=== PATIENT | male | born 1985 | race Caucasian/White ===

== ENCOUNTER 2019-06-12 11:36 | Inpatient (IN) | payer OTHER ==
[2019-06-12 12:38] VITALS: BMI 29.0
--- NOTE | 2019-06-12 16:51 | HP ---
COWS - Scale Resting Pulse: 0= SC 80 or Below Sweatin= Chills/Flushing Restless Observation: 1= Difficult to Sit Still Pupil Size: 1= Pupils >than Normal Bone or Joint Aches: 2= Severe Diffuse Aches Runny Nose/ Eye Tearin= Runny Nose/Eyes GI Upset > 30mins: 2= Nausea/Diarrhea Tremor Observation: 2= Slight Tremor Visible Yawning Observation: 1= 1-2x During Session Anxiety or Irritability: 2=Irritable/Anxious Goose Flesh Skin: 3=Piloerection COWS Score: 17 CIWA Score Nausea/Vomitin Muscle Tremors: 2 Anxiety: 2 Agitation: 2 Paroxysmal Sweats: 2 Orientation: 0-Oriented Tacttile Disturbances: 2-Mild Itch/Numbness/Burn Auditory Disturbances: 0-None Visual Disturbances: 0-None Headache: 2-Mild CIWA-Ar Total Score: 14 - Admission Criteria OASAS Guidelines: Admission for Medically Managed Detox: Requires at least one of the followin. CIWA greater than 12 2. Seizures within the past 24 hours 3. Delirium tremens within the past 24 hours 4. Hallucinations within the past 24 hours 5. Acute intervention needed for co occurring medical disorder 6. Acute intervention needed for co occurring psychiatric disorder 7. Severe withdrawal that cannot be handled at a lower level of care (continued vomiting, continued diarrhea, abnormal vital signs) requiring intravenous medication and/or fluids 8. Patient presents the following: CIWA greater than 12 Admission Criteria Met: Admission criteria met Admission ROS S - [facility] Chief Complaint: I wanna get clean, I don't wanna be dependent on any heroin unless its prescription opiod. Allergies/Adverse Reactions: Allergies Allergy/AdvReac Type Severity Reaction Status Date / Time Fish Containing Products Allergy Hives Verified 06/12/19 12:27 History of Present Illness: 34 year old man with alcohol and opioid dependence presents for detox. His last treatment was 6 months ago at [facility]. He denies seizures or blackouts related to alcohol. Exam Limitations: No Limitations - Ebola screening Have you traveled outside of the country in the last 21 days: No Have you had contact with anyone from an Ebola affected area: No Have you been sick,other than usual withdrawal symptoms: No Do you have a fever: No - Review of Systems Constitutional: No Symptoms Reported, Chills EENT: reports: Blurred Vision, Nose Congestion Respiratory: reports: Cough (usually at night) Cardiac: reports: No Symptoms Reported GI: reports: Nausea, Poor Fluid Intake, Abdominal cramping : reports: No Symptoms Reported Musculoskeletal: reports: Back Pain Integumentary: reports: Sweating Neuro: reports: Numbness, Tremors Endocrine: reports: No Symptoms Reported Hematology: reports: No Symptoms Reported Psychiatric: reports: Anxious, Depressed Other Systems: Reviewed and Negative Patient History - Patient Medical History Hx Anemia: No Hx Asthma: No Hx Chronic Obstructive Pulmonary Disease (COPD): No Hx Cancer: No Hx Cardiac Disorders: No Hx Congestive Heart Failure: No Hx Hypertension: No Hx Hypercholesterolemia: No Hx Pacemaker: No HX Cerebrovascular Accident: No Hx Seizures: No Hx Dementia: No Hx Diabetes: No Hx Gastrointestinal Disorders: No Hx Liver Disease: No Hx Genitourinary Disorders: No Hx Sexually Transmitted Disorders: No Hx Renal Disease (ESRD): No Hx Thyroid Disease: No Hx Human Immunodeficiency Virus (HIV): No Hx Hepatitis C: No Hx Depression: Yes Hx Suicide Attempt: No Hx Bipolar Disorder: Yes Hx Schizophrenia: Yes - Patient Surgical History Past Surgical History: Yes Hx Neurologic Surgery: No Hx Cataract Extraction: No Hx Cardiac Surgery: No Hx Lung Surgery: No Hx Breast Surgery: No Hx Breast Biopsy: No Hx Abdominal Surgery: No Hx Appendectomy: No Hx Cholecystectomy: No Hx Genitourinary Surgery: No Hx Section: No Hx Orthopedic Surgery: Yes (torn meniscus repair) Other Surgical History: hernia repair x 2 Anesthesia Reaction: No - PPD History Previous Implant?: Yes Documented Results: Negative w/o proof Implanted On Prior [facility] Admission?: No PPD to be Administered?: Yes - Smoking Cessation Smoking history: Current every day smoker Have you smoked in the past 12 months: Yes Aproximately how many cigarettes per day: 10 Hx Chewing Tobacco Use: Yes Initiated information on smoking cessation: Yes 'Breaking Loose' booklet given: 06/12/19 - Substances abused Heroin Substance route: Inhalation Frequency: Daily Amount used: 10 BAGS/DAY Age of first use: 24 Date of last use: 06/12/19 Alcohol Substance route: Oral Frequency: Daily Amount used: 1PINT OF VODKA/DAY Age of first use: 24 Date of last use: 06/11/19 Admission Physical Exam BHS - Vital Signs Vital Signs: Vital Signs - 24 hr 06/12/19 12:34 Temperature 97.1 F L Pulse Rate 60 Respiratory 16 Rate Blood Pressure 130/70 - Physical General Appearance: Yes: Within Normal Limits HEENTM: Yes: Hearing grossly Normal, Normal ENT Inspection, Normocephalic, Normal Voice, JULIANNA, Pharynx Normal Respiratory: Yes: Chest Non-Tender, Lungs Clear, Normal Breath Sounds, No Respiratory Distress, No Accessory Muscle Use Neck: Yes: No masses,lesions,Nodules, Supple Breast: Yes: Breast Exam Deferred Cardiology: Yes: Regular Rhythm, Regular Rate, S1, S2 Abdominal: Yes: Normal Bowel Sounds, Non Tender Back: Yes: Normal Inspection Musculoskeletal: Yes: full range of Motion, Gait Steady, Pelvis Stable Extremities: Yes: Normal Range of Motion, Tremors Neurological: Yes: marketing strategy manager II-XII NML intact, Fully Oriented, Alert, Motor Strength 5/5, Normal Mood/Affect, Normal Response, Numbness Integumentary: Yes: Clammy Lymphatic: Yes: Within Normal Limits - Diagnostic (1) Opioid dependence Current Visit: Yes Status: Acute Qualifiers: Substance use status: uncomplicated Qualified Code(s): F11.20 - Opioid dependence, uncomplicated (2) Alcohol dependence, uncomplicated Current Visit: Yes Status: Acute (3) Cocaine abuse Current Visit: Yes Status: Acute (4) Marijuana dependence Current Visit: Yes Status: Acute (5) Nicotine addiction Current Visit: Yes Status: Acute Qualifiers: Nicotine product type: cigarettes Substance use status: uncomplicated Qualified Code(s): F17.210 - Nicotine dependence, cigarettes, uncomplicated Cleared for Admission S - Detox or Rehab [facility] Level of Care: Medically Managed Detox Regimen/Protocol: Methadone/Valium Claeared for Rehab Admission: No Breathalyzer - Breathalyzer Breathalyzer: 0 Urine Drug Screen - Test Device Lot number: [id number] Expiration date: 02/10/21 - Control Is test valid?: Yes - Results Drug screen NEGATIVE: No Urine drug screen results: THC-Marijuana, ALEXY-Cocaine, FEN-Fentanyl, MOP-Opiates Inpatient Rehab Admission - Rehab Decision to Admit Inpatient rehab admission?: No
[2019-06-12] MEDS ORDERED: IBUPROFEN 400 MG TABLET (FP) PO PRN (17:00)
[2019-06-12] MEDS ORDERED: NALOXONE HCL 0.4 MG/ML VIAL IM PRN (17:00)
[2019-06-12] MEDS ORDERED: MAGNESIUM CITRATE 300 ML BOTTLE PO PRN (17:00)
[2019-06-12] MEDS ORDERED: METHADONE HCL 10 MG TABLET (FOR DETOX USE ONLY) PO ONE (17:00)
[2019-06-12] MEDS ORDERED: MAGNESIUM HYDROX 2400MG/30ML ORAL SUSPENSION 30 ML CUP PO PRN (17:00)
[2019-06-12] MEDS ORDERED: NICOTINE POLACRILEX 2 MG GUM BUC PRN (17:00)
[2019-06-12] MEDS ORDERED: MENTHOL/PHENOL 1 EACH UD MM PRN (17:00)
[2019-06-12] MEDS ORDERED: QUEtiapine FUMARATE 100 MG TABLET (FP) PO PRN (17:00)
[2019-06-12] MEDS ORDERED: diazePAM 5 MG TABLET PO ONE (17:00)
[2019-06-12] MEDS ORDERED: ACETAMINOPHEN 325 MG TABLET (FP) PO PRN ×2 (17:00)
[2019-06-12] MEDS ORDERED: P-EPHED 60MG/TRIPROLIDI 2.5MG TABLET PO PRN (17:00)
[2019-06-12] MEDS ORDERED: MAG HYDROX/AL HYDROX/SIMETH 30 ML UNIT-DOSE CUP PO PRN (17:00)
[2019-06-12] MEDS ORDERED: BISMUTH SUBSALICYLATE 524 MG/30 ML UD PO PRN (17:00)
[2019-06-12] MEDS: cloNIDine HCL 0.1 MG TABLET PO PRN (18:20)
[2019-06-12] MEDS: METHOCARBAMOL 500 MG TABLET PO PRN (18:20)
[2019-06-12] MEDS: NICOTINE 14 MG/24 HOURS TOPICAL PATCH TD SCH (18:26)
[2019-06-12] MEDS: diazePAM 5 MG TABLET PO SCH (22:24)
[2019-06-12] MEDS: MELATONIN 5 MG TABLETS PO PRN (22:24)
[2019-06-12] MEDS: THIAMINE HCL 100 MG TABLET (FP) PO SCH (22:24)
[2019-06-13] MEDS: diazePAM 5 MG TABLET PO SCH ×3 (05:31→22:15)
[2019-06-13] MEDS ORDERED: PRENATAL VITAMINS W/ FOLIC ACID TABLET (FP) PO SCH (10:00)
[2019-06-13] MEDS ORDERED: METHADONE HCL 5 MG TABLET (FOR DETOX USE ONLY) PO ONE (10:00)
[2019-06-13] MEDS: diazePAM 5 MG TABLET PO PRN ×3 (10:35→23:53)
[2019-06-13] MEDS: NICOTINE 14 MG/24 HOURS TOPICAL PATCH TD SCH (10:35)
[2019-06-13 12:42] LABS: ALBUMIN 3.3 g/dl (3.4-5.0); BILIRUBIN,TOTAL 0.2 mg/dL (0.2-1); BLOOD UREA NITROGEN 15.1 mg/dL (7-18); CALCIUM 8.4 mg/dL (8.5-10.1); POTASSIUM 4.1 mmol/L (3.5-5.1); TOT PROT 6.4 g/dl (6.4-8.2)
[2019-06-13 12:45] LABS: HEMATOCRIT 37.5 % (35.4-49); HEMOGLOBIN 11.9 GM/dL (11.7-16.9); MCH 27.6 pg (25.7-33.7); MCHC 31.8 g/dl (32.0-35.9); MEAN CELL VOLUME 86.9 fl (80-96); MEAN PLT VOLUME 9.4 fl (7.5-11.1); PLATELET COUNT 203 K/MM3 (134-434); RBC 4.31 M/mm3 (4.00-5.60); RDW 15.2 % (11.9-15.9); WHITE BLOOD COUNT 5.3 K/mm3 (4.0-10.0)
--- NOTE | 2019-06-13 13:26 | PN ---
S CIWA - CIWA Score Nausea/Vomitin-Mild Nausea/No Vomiting Muscle Tremors: 3 Anxiety: 4-Mod. Anxious/Guarded Agitation: 1-Slight > Activity Paroxysmal Sweats: 2 Orientation: 0-Oriented Tacttile Disturbances: 0-None Auditory Disturbances: 0-None Visual Disturbances: 0-None Headache: 2-Mild CIWA-Ar Total Score: 13 BHS COWS - Scale Resting Pulse: 0= RI 80 or Below Sweatin= Chills/Flushing Restless Observation: 0= Sits Still Pupil Size: 1= Pupils >than Normal Bone or Joint Aches: 2= Severe Diffuse Aches Runny Nose/ Eye Tearin= None GI Upset > 30mins: 2= Nausea/Diarrhea Tremor Observation of Outstretched Hands: 2= Slight Tremor Visible Yawning Observation: 1= 1-2x During Session Anxiety or Irritability: 1=Feels Anxious/Irritable Goose Flesh Skin: 3=Piloerection COWS Score: 13 S Progress Note (SOAP) Subjective: 34 years old male admitted on 06/12/19 for alcohol and opiate withdrawal sx management treated with valium and methadone detox regimen patient ate breakfast resting on bed feeling tired body aches and tremor encourage tylenal and roboxine Objective: 06/13/19 13:27 Vital Signs Temperature 96.1 F L 06/13/19 09:21 Pulse Rate 66 06/13/19 09:21 Respiratory Rate 20 06/13/19 09:21 Blood Pressure 130/63 06/13/19 09:21 O2 Sat by Pulse Oximetry (%) Laboratory Last Values WBC 5.3 K/mm3 (4.0-10.0) 06/13/19 07:50 RBC 4.31 M/mm3 (4.00-5.60) 06/13/19 07:50 Hgb 11.9 GM/dL (11.7-16.9) 06/13/19 07:50 Hct 37.5 % (35.4-49) 06/13/19 07:50 MCV 86.9 fl (80-96) 06/13/19 07:50 MCH 27.6 pg (25.7-33.7) 06/13/19 07:50 MCHC 31.8 g/dl (32.0-35.9) L 06/13/19 07:50 RDW 15.2 % (11.9-15.9) 06/13/19 07:50 Plt Count 203 K/MM3 (134-434) 06/13/19 07:50 MPV 9.4 fl (7.5-11.1) 06/13/19 07:50 Sodium 141 mmol/L (136-145) 06/13/19 07:50 Potassium 4.1 mmol/L (3.5-5.1) 06/13/19 07:50 Chloride 107 mmol/L (98-107) 06/13/19 07:50 Carbon Dioxide 27 mmol/L (21-32) 06/13/19 07:50 Anion Gap 6 MMOL/L (8-16) L 06/13/19 07:50 BUN 15.1 mg/dL (7-18) 06/13/19 07:50 Creatinine 1.0 mg/dL (0.55-1.3) 06/13/19 07:50 Est GFR (CKD-EPI)AfAm 114.11 06/13/19 07:50 Est GFR (CKD-EPI)NonAf 98.45 06/13/19 07:50 Random Glucose 104 mg/dL (74-106) 06/13/19 07:50 Calcium 8.4 mg/dL (8.5-10.1) L 06/13/19 07:50 Total Bilirubin 0.2 mg/dL (0.2-1) 06/13/19 07:50 AST 10 U/L (15-37) L 06/13/19 07:50 ALT 17 U/L (13-61) 06/13/19 07:50 Alkaline Phosphatase 83 U/L (45-117) 06/13/19 07:50 Total Protein 6.4 g/dl (6.4-8.2) 06/13/19 07:50 Albumin 3.3 g/dl (3.4-5.0) L 06/13/19 07:50 lab noted Assessment: 06/13/19 13:27 alcohol and opiate withdrawal sx Plan: continue valium and methadone detox regimen
--- NOTE | 2019-06-13 13:52 | CONSULT ---
[facility] Psychiatric Consult - Data Date of interview: 06/13/19 Admission source: [facility] Identifying data: Patient is a 34 year old male, , father of one, unemployed, domiciled, and is supported by [employer]. This is one of multiple admissions for patient. Patient admitted to for alcohol and opiate dependence. Substance Abuse History: Smoking Cessation. Smoking history: Current every day smoker. Have you smoked in the past 12 months: Yes. Aproximately how many cigarettes per day: 10. Hx Chewing Tobacco Use: Yes. Initiated information on smoking cessation: Yes. 'Breaking Loose' booklet given: 06/12/19. - Substances abused. Heroin. Substance route: Inhalation. Frequency: Daily. Amount used: 10 BAGS/DAY. Age of first use: 24. Date of last use: 06/12/19. Alcohol. Substance route: Oral. Frequency: Daily. Amount used: 1PINT OF VODKA/DAY. Age of first use: 24. Date of last use: 06/11/19 Medical History: Significant for torn meniscus repair, hernia repair x 2 Psychiatric History: Patient reports history of multiple psychiatric hospitalizations, most recently at [facility] on in the summer of 2018 after he was off his medications and begun to hear voices. Diagnosis of schizophrenia and bipolar disorder. He was prescribed depakote 500mg BID + Klonopin BID (unsure of dosage) + Vistaril 50mg (unsure of how scheduled). He reports past hospitalizations at [facility], [facility], [facility], and [facility] ([facility]). Denies history of suicide attempt. States that he was receiving outpatient psychiatric care at [facility] but at the moment is not being followed by a psychiatrist. Patient with a history of poor compliance. At present patient reports difficulty sleeping. He denies auditory/visual hallucinations, suicidal/ homicidal ideation. Physical/Sexual Abuse/Trauma History: denies. Mental Status Exam - Mental Status Exam Alert and Oriented to: Time, Place, Person Cognitive Function: Good Patient Appearance: Well Groomed Mood: Withdrawn Affect: Mood Congruent Patient Behavior: Cooperative Speech Pattern: Appropriate Voice Loudness: Normal Thought Process: Goal Oriented Thought Disorder: Not Present Hallucinations: Denies Suicidal Ideation: Denies Homicidal Ideation: Denies Insight/Judgement: Poor Sleep: Poorly Appetite: Fair Muscle strength/Tone: Normal Gait/Station: Normal Psychiatric Findings - Problem List ([place] 1, 2,3) (1) Bipolar disorder Status: Chronic (2) Alcohol dependence, uncomplicated Status: Acute (3) Cocaine abuse Status: Acute (4) Marijuana dependence Status: Chronic (5) Opioid dependence Status: Acute Qualifiers: Substance use status: uncomplicated Qualified Code(s): F11.20 - Opioid dependence, uncomplicated - Initial Treatment Plan Initial Treatment Plan: Psychoeducation provided. Detoxification in progress. Patient received seroquel 100mg last night. Will d/c seroquel 100mg and will order seroquel 200mg HS. Benefits and side effects discussed. Verbal consent given.
[2019-06-13] MEDS: cloNIDine HCL 0.1 MG TABLET PO PRN ×2 (18:19→22:16)
[2019-06-13] MEDS ORDERED: QUEtiapine FUMARATE 100 MG TABLET (FP) PO SCH (22:00)
[2019-06-13] MEDS: THIAMINE HCL 100 MG TABLET (FP) PO SCH (22:15)
[2019-06-13] MEDS: MELATONIN 5 MG TABLETS PO PRN (22:16)
[2019-06-13] MEDS: METHOCARBAMOL 500 MG TABLET PO PRN (23:53)
[2019-06-14] MEDS ORDERED: hydrOXYzine PAMOATE 50 MG CAPSULE (FP) PO ONE (01:35)
[2019-06-14] MEDS: METHOCARBAMOL 500 MG TABLET PO PRN (05:35)
[2019-06-14] MEDS ORDERED: diazePAM 5 MG TABLET PO SCH (06:00)
[2019-06-14 09:06] VITALS: BP 132/85; PULSE 84; TEMP 96
[2019-06-14] MEDS ORDERED: METHADONE HCL 10 MG TABLET (FOR DETOX USE ONLY) PO ONE (10:00)
--- NOTE | 2019-06-14 11:01 | DS ---
[facility] Detox Discharge Summary Admission Date: 06/12/19 Discharge Date: 06/14/19 - History Present History: Alcohol Dependence, Opioid Dependence Additional Comments: 34 years old male admitted on 06/12/19 for alcohol and opiate withdrawal sx management treated with valium and methadone detox regimen patient is alert oriented x 3 ambulating steady gait speech clearly coherently patient insists to leave the detox unit refuses ciwa and cows refuses exist physical examination - Physical Exam Results Vital Signs: Vital Signs Temperature 96.0 F L 06/14/19 09:05 Pulse Rate 84 06/14/19 09:05 Respiratory Rate 18 06/14/19 09:05 Blood Pressure 132/85 06/14/19 09:05 O2 Sat by Pulse Oximetry (%) Pertinent Admission Physical Exam Findings: alcohol and opiate withdrawal sx Laboratory Last Values WBC 5.3 K/mm3 (4.0-10.0) 06/13/19 07:50 RBC 4.31 M/mm3 (4.00-5.60) 06/13/19 07:50 Hgb 11.9 GM/dL (11.7-16.9) 06/13/19 07:50 Hct 37.5 % (35.4-49) 06/13/19 07:50 MCV 86.9 fl (80-96) 06/13/19 07:50 MCH 27.6 pg (25.7-33.7) 06/13/19 07:50 MCHC 31.8 g/dl (32.0-35.9) L 06/13/19 07:50 RDW 15.2 % (11.9-15.9) 06/13/19 07:50 Plt Count 203 K/MM3 (134-434) 06/13/19 07:50 MPV 9.4 fl (7.5-11.1) 06/13/19 07:50 Sodium 141 mmol/L (136-145) 06/13/19 07:50 Potassium 4.1 mmol/L (3.5-5.1) 06/13/19 07:50 Chloride 107 mmol/L (98-107) 06/13/19 07:50 Carbon Dioxide 27 mmol/L (21-32) 06/13/19 07:50 Anion Gap 6 MMOL/L (8-16) L 06/13/19 07:50 BUN 15.1 mg/dL (7-18) 06/13/19 07:50 Creatinine 1.0 mg/dL (0.55-1.3) 06/13/19 07:50 Est GFR (CKD-EPI)AfAm 114.11 06/13/19 07:50 Est GFR (CKD-EPI)NonAf 98.45 06/13/19 07:50 Random Glucose 104 mg/dL (74-106) 06/13/19 07:50 Calcium 8.4 mg/dL (8.5-10.1) L 06/13/19 07:50 Total Bilirubin 0.2 mg/dL (0.2-1) 06/13/19 07:50 AST 10 U/L (15-37) L 06/13/19 07:50 ALT 17 U/L (13-61) 06/13/19 07:50 Alkaline Phosphatase 83 U/L (45-117) 06/13/19 07:50 Total Protein 6.4 g/dl (6.4-8.2) 06/13/19 07:50 Albumin 3.3 g/dl (3.4-5.0) L 06/13/19 07:50 lab noted Vital Signs Temperature 96.0 F L 06/14/19 09:05 Pulse Rate 84 06/14/19 09:05 Respiratory Rate 18 06/14/19 09:05 Blood Pressure 132/85 06/14/19 09:05 O2 Sat by Pulse Oximetry (%) - Treatment Hospital Course: Detox Protocol Followed, Responded well Patient has Accepted a Rehab Referral to: medication assisted treatment program - Medication Discharge Medications: Ambulatory Orders Clonazepam [Klonopin] 2 mg PO BID 06/12/19 Quetiapine Fumarate [Seroquel -] 200 mg PO BID 06/12/19 Naloxone HCl [Narcan] 4 mg NS ASDIR PRN #1 spray 06/13/19 - Diagnosis (1) Alcohol dependence, uncomplicated Current Visit: Yes Status: Acute (2) Marijuana dependence Current Visit: Yes Status: Chronic (3) Nicotine addiction Current Visit: Yes Status: Acute Qualifiers: Nicotine product type: cigarettes Substance use status: in withdrawal Qualified Code(s): F17.213 - Nicotine dependence, cigarettes, with withdrawal (4) Opioid dependence Current Visit: Yes Status: Acute Qualifiers: Substance use status: uncomplicated Qualified Code(s): F11.20 - Opioid dependence, uncomplicated - AMA Did Patient Leave Against Medical Advice: Yes
--- NOTE | 2019-06-14 12:01 | EKG ---
Test Reason : Blood Pressure : / mmHG Vent. Rate : 061 BPM Atrial Rate : 061 BPM P-R Int : 144 ms QRS Dur : 088 ms QT Int : 388 ms P-R-T Axes : 046 054 040 degrees QTc Int : 390 ms SINUS RHYTHM WITH PREMATURE ATRIAL COMPLEXES OTHERWISE NORMAL ECG NO PREVIOUS ECGS AVAILABLE Confirmed by GODWIN BURROUGHS MD ([id number]) on 06/14/2019 12:00:35 PM Referred By: Confirmed By:GODWIN BURROUGHS MD
[2019-06-15] MEDS ORDERED: METHADONE HCL 5 MG TABLET (FOR DETOX USE ONLY) PO ONE (06:00)
[2019-06-15] MEDS ORDERED: diazePAM 5 MG TABLET PO ONE (06:00)
== END 2019-06-14 10:00 | disposition left against medical advice (07) | DRG 770 ==
LOC: YASAS 11:36 → Y3N 17:27
PROVIDERS: ADMIT Allergy & Immunology; ATTEND Allergy & Immunology
PROC: HZ2ZZZZ Detoxification Services for Substance Abuse Treatment (ICD-10-PCS; principal; 2019-06-12)
DX: F10.230 Alcohol dependence with withdrawal, uncomplicated (principal); F11.23 Opioid dependence with withdrawal; F12.20 Cannabis dependence, uncomplicated; F17.210 Nicotine dependence, cigarettes, uncomplicated; F31.9 Bipolar disorder, unspecified; F20.9 Schizophrenia, unspecified; Z98.890 Other specified postprocedural states; Z91.013 Allergy to seafood
CPT/HCPCS: 36415; 80053; 85027; 86593; 93005; 93010; J0735

== ENCOUNTER 2019-07-13 12:08 | Inpatient (IN) | payer OTHER ==
[2019-07-13 12:48] VITALS: BMI 29.2
--- NOTE | 2019-07-13 13:35 | HP ---
COWS - Scale Resting Pulse: 0= SD 80 or Below Sweatin= Chills/Flushing Restless Observation: 1= Difficult to Sit Still Pupil Size: 1= Pupils >than Normal Bone or Joint Aches: 2= Severe Diffuse Aches Runny Nose/ Eye Tearin= Runny Nose/Eyes GI Upset > 30mins: 2= Nausea/Diarrhea Tremor Observation: 2= Slight Tremor Visible Yawning Observation: 1= 1-2x During Session Anxiety or Irritability: 2=Irritable/Anxious Goose Flesh Skin: 0=Smooth Skin COWS Score: 14 CIWA Score Nausea/Vomitin Muscle Tremors: 2 Anxiety: 3 Agitation: 3 Paroxysmal Sweats: 1-Minimal Palms Moist Orientation: 0-Oriented Tacttile Disturbances: 1-Very Mild Itch/Numbness Auditory Disturbances: 0-None Visual Disturbances: 0-None Headache: 2-Mild CIWA-Ar Total Score: 14 - Admission Criteria OASAS Guidelines: Admission for Medically Managed Detox: Requires at least one of the followin. CIWA greater than 12 2. Seizures within the past 24 hours 3. Delirium tremens within the past 24 hours 4. Hallucinations within the past 24 hours 5. Acute intervention needed for co occurring medical disorder 6. Acute intervention needed for co occurring psychiatric disorder 7. Severe withdrawal that cannot be handled at a lower level of care (continued vomiting, continued diarrhea, abnormal vital signs) requiring intravenous medication and/or fluids 8. Admitting History and Physical - Admission Chief Complaint: i neeed help to stop using heroin,alcohol,cocaine marijuana History of Present Illness: this 34 years old male with heroin,alcohol,cocaine ,marijuana dependence, seeking detox,withdrawal symptom seeking help last detox [facility] 06/12/19 to 06/14/19 not completed denied seizure denied syncope nicotine dependence bipolar disorder weight loss possible rehab longest sobriety 7 months History Source: Patient Limitations to Obtaining History: No Limitations - Smoking History Smoking history: Current every day smoker Have you smoked in the past 12 months: Yes Aproximately how many cigarettes per day: 20 - Alcohol/Substance Use Hx Alcohol Use: Yes History of Substance Use: reports: Heroin - Social History Usual Living Arrangement: Yes: With Parent History of Recent Travel: No Admission ROS S - HPI Chief Complaint: for inpatient detox from heroin,alcohol,cocaine and marijuana Allergies/Adverse Reactions: Allergies Allergy/AdvReac Type Severity Reaction Status Date / Time Fish Containing Products Allergy Hives Verified 07/13/19 12:34 History of Present Illness: this 34 years old male with poly substance dependence and alcohol dependence seekig help detox,withdrawal symptom, last detox [facility] 06/12/19 to 06/14/19 denied seizure denied syncope weight loss nicotine dependence living with parent ,unemployed Exam Limitations: No Limitations - Ebola screening Have you traveled outside of the country in the last 21 days: No Have you had contact with anyone from an Ebola affected area: No Do you have a fever: No - Review of Systems Constitutional: Chills, Loss of Appetite, Night Sweats, Changes in sleep, Unintentional Wgt. Loss EENT: reports: Tearing, Nose Congestion Respiratory: reports: No Symptoms reported Cardiac: reports: No Symptoms Reported GI: reports: Diarrhea, Nausea, Poor Appetite, Vomiting : reports: No Symptoms Reported Musculoskeletal: reports: Back Pain, Joint Pain, Muscle Pain Integumentary: reports: Dryness Neuro: reports: Headache, Tremors Endocrine: reports: No Symptoms Reported Hematology: reports: No Symptoms Reported Psychiatric: reports: No Sypmtoms Reported, Judgement Intact, Mood/Affect Appropiate, Orientated x3, other (bipolar disorder) Other Systems: Reviewed and Negative Patient History - Patient Medical History Hx Anemia: No Hx Asthma: No Hx Chronic Obstructive Pulmonary Disease (COPD): No Hx Cancer: No Hx Cardiac Disorders: No Hx Congestive Heart Failure: No Hx Hypertension: No Hx Hypercholesterolemia: No Hx Pacemaker: No HX Cerebrovascular Accident: No Hx Seizures: No Hx Dementia: No Hx Diabetes: No Hx Gastrointestinal Disorders: No Hx Liver Disease: No Hx Genitourinary Disorders: No Hx Sexually Transmitted Disorders: No Hx Renal Disease (ESRD): No Hx Thyroid Disease: No Hx Human Immunodeficiency Virus (HIV): No (07/01 negative) Hx Hepatitis C: No Hx Depression: Yes Hx Suicide Attempt: No Hx Bipolar Disorder: Yes Hx Schizophrenia: Yes Other Medical History: no suicidal,no homicidal - Patient Surgical History Past Surgical History: Yes Hx Neurologic Surgery: No Hx Cataract Extraction: No Hx Cardiac Surgery: No Hx Lung Surgery: No Hx Breast Surgery: No Hx Breast Biopsy: No Hx Abdominal Surgery: No Hx Appendectomy: No Hx Cholecystectomy: No Hx Genitourinary Surgery: No Hx Section: No Hx Orthopedic Surgery: Yes (torn meniscus repair left) Other Surgical History: hernia repair x 2 both inguinal Anesthesia Reaction: No - PPD History Previous Implant?: Yes Documented Results: Negative w/o proof Date: 06/14/19 Results: not read PPD to be Administered?: Yes - Smoking Cessation Smoking history: Current every day smoker Have you smoked in the past 12 months: Yes Aproximately how many cigarettes per day: 20 Hx Chewing Tobacco Use: Yes Initiated information on smoking cessation: Yes 'Breaking Loose' booklet given: 07/13/19 - Substance & Tx. History Hx Alcohol Use: Yes Hx Substance Use: Yes Substance Use Type: Alcohol, Cocaine, Heroin, Marijuana Hx Substance Use Treatment: Yes (06/12/19 to 06/14/19 not completed) - Substances abused Heroin Substance route: Inhalation Frequency: Daily Amount used: 10 BAGS Age of first use: 24 Date of last use: 07/13/19 Alcohol Substance route: Oral Frequency: Daily Amount used: 1 pint of vodka Age of first use: 24 Date of last use: 07/13/19 PCP Substance route: Smoking Frequency: 1-2 times per week Amount used: 1 bag Age of first use: 24 Date of last use: 07/12/19 Marijuana/Hashish Substance route: Smoking Frequency: Daily Amount used: 1 blunt Age of first use: 19 Date of last use: 07/13/19 Cocaine Substance route: Injection Frequency: Daily Amount used: 1/2 gram Age of first use: 24 Date of last use: 07/12/19 Admission Physical Exam BHS - Vital Signs Vital Signs: Vital Signs - 24 hr 07/13/19 12:37 Temperature 97.1 F L Pulse Rate 52 L Respiratory 20 Rate Blood Pressure 122/67 - Physical General Appearance: Yes: Moderate Distress, Tremorous, Irritable, Sweating, Anxious HEENTM: Yes: Normal ENT Inspection, JULIANNA, Pharynx Normal Respiratory: Yes: Lungs Clear, Normal Breath Sounds, No Respiratory Distress Neck: Yes: Within Normal Limits, Supple, Trachea in good position Breast: Yes: Within Normal Limits Cardiology: Yes: Regular Rhythm, Regular Rate, S1, S2, Bradycardia Abdominal: Yes: Normal Bowel Sounds, Non Tender, Flat, Soft Genitourinary: Yes: Within Normal Limits Back: Yes: Muscle Spasm Extremities: Yes: Tremors Neurological: Yes: center hole reamer II-XII NML intact, Alert, Motor Strength 5/5 Integumentary: Yes: Dry Lymphatic: Yes: Within Normal Limits - Diagnostic (1) Opioid dependence with withdrawal Current Visit: Yes Status: Acute (2) Alcohol dependence, uncomplicated Current Visit: No Status: Acute (3) Cocaine abuse Current Visit: No Status: Acute (4) Nicotine addiction Current Visit: No Status: Acute Qualifiers: Nicotine product type: cigarettes Substance use status: in withdrawal Qualified Code(s): F17.213 - Nicotine dependence, cigarettes, with withdrawal (5) Bipolar disorder Current Visit: No Status: Chronic (6) Marijuana dependence Current Visit: No Status: Chronic (7) Weight loss Current Visit: Yes Status: Acute Cleared for Admission S - Detox or Rehab S Level of Care: Medically Managed Detox Regimen/Protocol: Methadone/Librium Breathalyzer - Breathalyzer Breathalyzer: 0 Urine Drug Screen - Test Device Lot number: [id number] Expiration date: 02/10/21 - Control Is test valid?: Yes - Results Drug screen NEGATIVE: No Urine drug screen results: THC-Marijuana, ALEXY-Cocaine, FEN-Fentanyl, MOP-Opiates Inpatient Rehab Admission - Rehab Decision to Admit Inpatient rehab admission?: No
[2019-07-13] MEDS ORDERED: MAGNESIUM CITRATE 300 ML BOTTLE PO PRN (13:48)
[2019-07-13] MEDS ORDERED: IBUPROFEN 400 MG TABLET (FP) PO PRN (13:48)
[2019-07-13] MEDS ORDERED: MELATONIN 5 MG TABLETS PO PRN (13:48)
[2019-07-13] MEDS ORDERED: MAG HYDROX/AL HYDROX/SIMETH 30 ML UNIT-DOSE CUP PO PRN (13:48)
[2019-07-13] MEDS ORDERED: hydrOXYzine PAMOATE 25 MG CAPSULE (FP) PO PRN (13:48)
[2019-07-13] MEDS ORDERED: chlordiazePOXIDE HCL 25 MG CAPSULE PO PRN (13:48)
[2019-07-13] MEDS ORDERED: NICOTINE POLACRILEX 2 MG GUM BUC PRN (13:48)
[2019-07-13] MEDS ORDERED: METHOCARBAMOL 500 MG TABLET PO PRN (13:48)
[2019-07-13] MEDS ORDERED: MENTHOL/PHENOL 1 EACH UD MM PRN (13:48)
[2019-07-13] MEDS ORDERED: ACETAMINOPHEN 325 MG TABLET (FP) PO PRN ×2 (13:48)
[2019-07-13] MEDS ORDERED: BISMUTH SUBSALICYLATE 262 MG/15 ML BTL PO PRN (13:48)
[2019-07-13] MEDS ORDERED: cloNIDine HCL 0.1 MG TABLET PO PRN (13:48)
[2019-07-13] MEDS ORDERED: MAGNESIUM HYDROX 2400MG/30ML ORAL SUSPENSION 30 ML CUP PO PRN (13:48)
[2019-07-13] MEDS ORDERED: METHADONE HCL 10 MG TABLET (FOR DETOX USE ONLY) PO ONE (14:10)
[2019-07-13] MEDS: chlordiazePOXIDE HCL 25 MG CAPSULE PO SCH ×3 (15:04→22:05)
[2019-07-13] MEDS: NICOTINE 21 MG/24 HOURS TOPICAL PATCH TD SCH (15:05)
[2019-07-13 17:13] LABS: HEMATOCRIT 38.2 % (35.4-49); HEMOGLOBIN 12.1 GM/dL (11.7-16.9); MCH 27.1 pg (25.7-33.7); MCHC 31.5 g/dl (32.0-35.9); MEAN CELL VOLUME 85.8 fl (80-96); MEAN PLT VOLUME 9.3 fl (7.5-11.1); PLATELET COUNT 191 K/MM3 (134-434); RBC 4.45 M/mm3 (4.00-5.60); RDW 14.6 % (11.9-15.9); WHITE BLOOD COUNT 6.2 K/mm3 (4.0-10.0)
[2019-07-13 17:22] LABS: ALBUMIN 3.8 g/dl (3.4-5.0); BILIRUBIN,TOTAL 0.2 mg/dL (0.2-1); BLOOD UREA NITROGEN 14.2 mg/dL (7-18); CREATININE 0.9 mg/dL (0.55-1.3); POTASSIUM 4.3 mmol/L (3.5-5.1); TOT PROT 7.3 g/dl (6.4-8.2)
[2019-07-13] MEDS ORDERED: THIAMINE HCL 100 MG TABLET (FP) PO SCH (22:00)
[2019-07-14] MEDS: chlordiazePOXIDE HCL 25 MG CAPSULE PO SCH ×2 (06:27→10:54)
[2019-07-14] MEDS ORDERED: PRENATAL VITAMINS W/ FOLIC ACID TABLET (FP) PO SCH (10:00)
[2019-07-14] MEDS ORDERED: METHADONE (DETOX) 20 MG, METHADONE (DETOX) 5 MG PO ONE (10:00)
[2019-07-14] MEDS ORDERED: METHADONE HCL 10 MG TABLET (FOR DETOX USE ONLY) ONE (10:05)
[2019-07-14] MEDS ORDERED: METHADONE HCL 5 MG TABLET (FOR DETOX USE ONLY) ONE (10:05)
[2019-07-14] MEDS: NICOTINE 21 MG/24 HOURS TOPICAL PATCH TD SCH (10:53)
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
--- NOTE | 2019-07-14 12:19 | PN ---
S CIWA - CIWA Score Nausea/Vomitin Muscle Tremors: 2 Anxiety: 2 Agitation: 2 Paroxysmal Sweats: 1-Minimal Palms Moist Orientation: 0-Oriented Tacttile Disturbances: 1-Very Mild Itch/Numbness Auditory Disturbances: 0-None Visual Disturbances: 0-None Headache: 2-Mild CIWA-Ar Total Score: 12 BHS COWS - Scale Resting Pulse: 0= OR 80 or Below Sweatin= No chills or Flushing Restless Observation: 1= Difficult to Sit Still Pupil Size: 1= Pupils >than Normal Bone or Joint Aches: 1= Mild Discomfort Runny Nose/ Eye Tearin= Runny Nose/Eyes GI Upset > 30mins: 1= Stomach Cramp Tremor Observation of Outstretched Hands: 2= Slight Tremor Visible Yawning Observation: 1= 1-2x During Session Anxiety or Irritability: 2=Irritable/Anxious Goose Flesh Skin: 0=Smooth Skin COWS Score: 11 S Progress Note (SOAP) Subjective: ,nausea alert,irritable,anxious,interrupted sleep,pain in the body and back Objective: 07/14/19 12:17 Vital Signs Temperature 96.1 F L 07/14/19 10:04 Pulse Rate 62 07/14/19 10:04 Respiratory Rate 16 07/14/19 10:04 Blood Pressure 135/70 07/14/19 10:04 O2 Sat by Pulse Oximetry (%) Laboratory Last Values WBC 6.2 K/mm3 (4.0-10.0) 07/13/19 13:00 RBC 4.45 M/mm3 (4.00-5.60) 07/13/19 13:00 Hgb 12.1 GM/dL (11.7-16.9) 07/13/19 13:00 Hct 38.2 % (35.4-49) 07/13/19 13:00 MCV 85.8 fl (80-96) 07/13/19 13:00 MCH 27.1 pg (25.7-33.7) 07/13/19 13:00 MCHC 31.5 g/dl (32.0-35.9) L 07/13/19 13:00 RDW 14.6 % (11.9-15.9) 07/13/19 13:00 Plt Count 191 K/MM3 (134-434) 07/13/19 13:00 MPV 9.3 fl (7.5-11.1) 07/13/19 13:00 Sodium 137 mmol/L (136-145) 07/13/19 13:00 Potassium 4.3 mmol/L (3.5-5.1) 07/13/19 13:00 Chloride 102 mmol/L (98-107) 07/13/19 13:00 Carbon Dioxide 31 mmol/L (21-32) 07/13/19 13:00 Anion Gap 5 MMOL/L (8-16) L 07/13/19 13:00 BUN 14.2 mg/dL (7-18) 07/13/19 13:00 Creatinine 0.9 mg/dL (0.55-1.3) 07/13/19 13:00 Est GFR (CKD-EPI)AfAm 129.61 07/13/19 13:00 Est GFR (CKD-EPI)NonAf 111.83 07/13/19 13:00 Random Glucose 92 mg/dL (74-106) 07/13/19 13:00 Calcium 9.0 mg/dL (8.5-10.1) 07/13/19 13:00 Total Bilirubin 0.2 mg/dL (0.2-1) 07/13/19 13:00 AST 15 U/L (15-37) 07/13/19 13:00 ALT 25 U/L (13-61) 07/13/19 13:00 Alkaline Phosphatase 94 U/L (45-117) 07/13/19 13:00 Total Protein 7.3 g/dl (6.4-8.2) 07/13/19 13:00 Albumin 3.8 g/dl (3.4-5.0) 07/13/19 13:00 RPR Titer Nonreactive (NONREACTIVE) 07/13/19 13:00 Assessment: 07/14/19 12:18 withdrawal symptom Plan: continue detox methadone and librium regimen
--- NOTE | 2019-07-14 12:23 | PN ---
BHS Progress Note Note: patient would like regimen to change to methadone and valium instead of methadone and librium
[2019-07-14] MEDS ORDERED: diazePAM 5 MG TABLET PO PRN (12:26)
[2019-07-14] MEDS ORDERED: diazePAM 5 MG TABLET PO SCH (14:00)
--- NOTE | 2019-07-14 17:46 | EKG ---
Test Reason : Blood Pressure : / mmHG Vent. Rate : 050 BPM Atrial Rate : 050 BPM P-R Int : 150 ms QRS Dur : 092 ms QT Int : 412 ms P-R-T Axes : 040 047 028 degrees QTc Int : 375 ms SINUS BRADYCARDIA OTHERWISE NORMAL ECG WHEN COMPARED WITH ECG OF 12-JUN-2019 18:10, PREMATURE ATRIAL COMPLEXES ARE NO LONGER PRESENT Confirmed by REJI CHAVARRIA MD ([id number]) on 07/14/2019 5:46:17 PM Referred By: Confirmed By:REJI CHAVARRIA MD
[2019-07-14 18:30] VITALS: BP 110/64; PULSE 64; TEMP 95.2
--- NOTE | 2019-07-14 20:30 | DS ---
[facility] Detox Discharge Summary Admission Date: 07/13/19 Discharge Date: 07/14/19 - History Present History: Alcohol Dependence, Cannabis Dependence, Cocaine Dependence, Opioid Dependence - Physical Exam Results Vital Signs: Vital Signs Temperature 95.2 F L 07/14/19 18:29 Pulse Rate 64 07/14/19 18:29 Respiratory Rate 18 07/14/19 18:29 Blood Pressure 110/64 07/14/19 18:29 O2 Sat by Pulse Oximetry (%) Pertinent Admission Physical Exam Findings: Admitted w/ alcohol and opioid withdrawal. Laboratory Last Values WBC 6.2 K/mm3 (4.0-10.0) 07/13/19 13:00 RBC 4.45 M/mm3 (4.00-5.60) 07/13/19 13:00 Hgb 12.1 GM/dL (11.7-16.9) 07/13/19 13:00 Hct 38.2 % (35.4-49) 07/13/19 13:00 MCV 85.8 fl (80-96) 07/13/19 13:00 MCH 27.1 pg (25.7-33.7) 07/13/19 13:00 MCHC 31.5 g/dl (32.0-35.9) L 07/13/19 13:00 RDW 14.6 % (11.9-15.9) 07/13/19 13:00 Plt Count 191 K/MM3 (134-434) 07/13/19 13:00 MPV 9.3 fl (7.5-11.1) 07/13/19 13:00 Sodium 137 mmol/L (136-145) 07/13/19 13:00 Potassium 4.3 mmol/L (3.5-5.1) 07/13/19 13:00 Chloride 102 mmol/L (98-107) 07/13/19 13:00 Carbon Dioxide 31 mmol/L (21-32) 07/13/19 13:00 Anion Gap 5 MMOL/L (8-16) L 07/13/19 13:00 BUN 14.2 mg/dL (7-18) 07/13/19 13:00 Creatinine 0.9 mg/dL (0.55-1.3) 07/13/19 13:00 Est GFR (CKD-EPI)AfAm 129.61 07/13/19 13:00 Est GFR (CKD-EPI)NonAf 111.83 07/13/19 13:00 Random Glucose 92 mg/dL (74-106) 07/13/19 13:00 Calcium 9.0 mg/dL (8.5-10.1) 07/13/19 13:00 Total Bilirubin 0.2 mg/dL (0.2-1) 07/13/19 13:00 AST 15 U/L (15-37) 07/13/19 13:00 ALT 25 U/L (13-61) 07/13/19 13:00 Alkaline Phosphatase 94 U/L (45-117) 07/13/19 13:00 Total Protein 7.3 g/dl (6.4-8.2) 07/13/19 13:00 Albumin 3.8 g/dl (3.4-5.0) 07/13/19 13:00 RPR Titer Nonreactive (NONREACTIVE) 07/13/19 13:00 Labs reviewed. Overdose risks and prevention discussed. Patient declines NRT. [facility] has a Narcan kit @ home. - Treatment Hospital Course: Detox Protocol Followed (Patient did not complete protocol. Remains, w/ tremors, anxiety, and irrtability, despite recent medication.) - Medication Discharge Medications: Ambulatory Orders Clonazepam [Klonopin] 2 mg PO BID 06/12/19 Quetiapine Fumarate [Seroquel -] 300 mg PO BID 06/12/19 Naloxone HCl [Narcan] 4 mg NS ASDIR PRN #1 spray 06/13/19 - Diagnosis (1) Alcohol dependence, uncomplicated Status: Acute (2) Nicotine dependence Status: Chronic Qualifiers: Nicotine product type: cigarettes (3) Opioid dependence with withdrawal Status: Acute (4) Cannabis dependence Status: Chronic (5) Cocaine dependence Status: Chronic Qualifiers: Substance use status: uncomplicated Qualified Code(s): F14.20 - Cocaine dependence, uncomplicated - AMA Did Patient Leave Against Medical Advice: Yes (Refused to stay despite encouragement.)
[2019-07-15] MEDS ORDERED: chlordiazePOXIDE HCL 25 MG CAPSULE PO SCH (05:00)
[2019-07-15] MEDS ORDERED: METHADONE HCL 10 MG TABLET (FOR DETOX USE ONLY) PO ONE (10:00)
[2019-07-16] MEDS ORDERED: chlordiazePOXIDE HCL 10 MG CAPSULE PO PRN
[2019-07-16] MEDS ORDERED: chlordiazePOXIDE HCL 10 MG CAPSULE PO SCH (05:00)
[2019-07-16] MEDS ORDERED: diazePAM 5 MG TABLET PO SCH (06:00)
[2019-07-16] MEDS ORDERED: METHADONE (DETOX) 10 MG, METHADONE (DETOX) 5 MG PO ONE (10:00)
[2019-07-17] MEDS ORDERED: chlordiazePOXIDE HCL 10 MG CAPSULE PO SCH (05:00)
[2019-07-17] MEDS ORDERED: diazePAM 5 MG TABLET PO ONE (06:00)
[2019-07-17] MEDS ORDERED: METHADONE HCL 10 MG TABLET (FOR DETOX USE ONLY) PO ONE (10:00)
[2019-07-18] MEDS ORDERED: chlordiazePOXIDE HCL 10 MG CAPSULE PO ONE (05:00)
[2019-07-18] MEDS ORDERED: METHADONE HCL 5 MG TABLET (FOR DETOX USE ONLY) PO ONE (06:00)
== END 2019-07-14 19:15 | disposition left against medical advice (07) | DRG 770 ==
LOC: YASAS 12:08 → Y6N 13:54
PROVIDERS: ADMIT Allergy & Immunology; ATTEND Allergy & Immunology
PROC: HZ2ZZZZ Detoxification Services for Substance Abuse Treatment (ICD-10-PCS; principal; 2019-07-13)
DX: F11.23 Opioid dependence with withdrawal (principal); F10.230 Alcohol dependence with withdrawal, uncomplicated; F14.20 Cocaine dependence, uncomplicated; F12.20 Cannabis dependence, uncomplicated; F16.10 Hallucinogen abuse, uncomplicated; F17.210 Nicotine dependence, cigarettes, uncomplicated; F25.9 Schizoaffective disorder, unspecified; F19.24 Other psychoactive substance dependence with psychoactive substance-induced mood disorder; F19.282 Other psychoactive substance dependence with psychoactive substance-induced sleep disorder; F31.9 Bipolar disorder, unspecified; R00.1 Bradycardia, unspecified; R63.4 Abnormal weight loss; Z91.013 Allergy to seafood
CPT/HCPCS: 36415; 80053; 85027; 86593; 93005; 93010; J0735

== ENCOUNTER 2020-12-13 11:39 | Inpatient (IN) | payer OTHER ==
[2020-12-13 14:14] VITALS: BMI 39.3
[2020-12-13] MEDS ORDERED: IBUPROFEN 400 MG TABLET (FP) PO PRN (18:01)
[2020-12-13] MEDS ORDERED: ACETAMINOPHEN 325 MG TABLET (FP) PO PRN (18:01)
[2020-12-13] MEDS ORDERED: MAG HYDROX/AL HYDROX/SIMETH 30 ML UNIT-DOSE CUP PO PRN (18:01)
[2020-12-13] MEDS ORDERED: MAGNESIUM CITRATE 300 ML BOTTLE PO PRN (18:01)
[2020-12-13] MEDS ORDERED: guaiFENesin 200 MG/10 ML 10 ML UNIT-DOSE CUPS PO PRN (18:01)
[2020-12-13] MEDS ORDERED: LOPERAMIDE HCL 2 MG CAPSULE PO PRN (18:01)
[2020-12-13] MEDS ORDERED: P-EPHED 60MG/TRIPROLIDI 2.5MG TABLET PO PRN (18:01)
[2020-12-13] MEDS ORDERED: DIVALPROEX NA *ER* EXTEND REL 500 MG TABLET.SA (FP) PO ONE (22:00)
[2020-12-13] MEDS: THIAMINE HCL 100 MG TABLET (FP) PO SCH (22:52)
[2020-12-13] MEDS: hydrOXYzine PAMOATE 25 MG CAPSULE (FP) PO PRN (22:52)
[2020-12-13] MEDS: MELATONIN 5 MG TABLETS PO SCH (22:53)
[2020-12-14] MEDS ORDERED: METHADONE HCL 40 MG DISPERSABLE TABLET PO SCH (06:00)
[2020-12-14] MEDS ORDERED: METHADONE HCL 10 MG TABLET ONE (06:06)
[2020-12-14] MEDS ORDERED: METHADONE HCL 40 MG DISPERSABLE TABLET ONE (06:07)
[2020-12-14] MEDS: METHADONE 120 MG, METHADONE 30 MG PO SCH (06:39)
[2020-12-14] MEDS ORDERED: HALOPERIDOL 5 MG TABLET PO PRN (09:59)
[2020-12-14] MEDS ORDERED: BENZTROPINE MESYLATE 1 MG TABLET PO PRN (09:59)
[2020-12-14] MEDS: PRENATAL VITAMINS W/ FOLIC ACID TABLET (FP) PO SCH (10:06)
[2020-12-14] MEDS: DIVALPROEX SODIUM 500 MG TABLET E.C. PO SCH ×2 (10:07→21:40)
[2020-12-14 11:27] LABS: URINE APPEARANCE CLEAR; URINE BILIRUBIN NEGATIVE (NEGATIVE); URINE COLOR YELLOW; URINE GLUCOSE (UA) NEGATIVE (NEGATIVE); URINE KETONE NEGATIVE (NEGATIVE); URINE LEUK ESTERASE NEGATIVE (NEGATIVE); URINE NITRITE NEGATIVE (NEGATIVE); URINE PROTEIN NEGATIVE (NEGATIVE); URINE UROBILINOGEN 0.2 mg/dL (0.2-1.0)
[2020-12-14] MEDS: hydrOXYzine PAMOATE 25 MG CAPSULE (FP) PO PRN ×2 (12:39→16:55)
[2020-12-14] MEDS: NICOTINE POLACRILEX 2 MG GUM BC PRN ×2 (12:39→22:06)
[2020-12-14] MEDS: DOCUSATE SODIUM 100 MG CAPSULE (FP) PO PRN (16:55)
[2020-12-14] MEDS ORDERED: PT OWN MED DRAWER 7, Y5N ONE (21:38)
[2020-12-14] MEDS: THIAMINE HCL 100 MG TABLET (FP) PO SCH (21:41)
[2020-12-14] MEDS: MELATONIN 5 MG TABLETS PO SCH (21:41)
[2020-12-15] MEDS ORDERED: METHADONE HCL 40 MG DISPERSABLE TABLET ONE (04:01)
[2020-12-15] MEDS ORDERED: METHADONE HCL 10 MG TABLET ONE (04:01)
[2020-12-15] MEDS: METHADONE 120 MG, METHADONE 30 MG PO SCH (06:29)
[2020-12-15] MEDS: hydrOXYzine PAMOATE 25 MG CAPSULE (FP) PO PRN ×2 (08:30→21:28)
[2020-12-15] MEDS: MAGNESIUM HYDROX 2400MG/30ML ORAL SUSPENSION 30 ML CUP PO PRN (08:31)
[2020-12-15] MEDS: NICOTINE POLACRILEX 2 MG GUM BC PRN ×2 (08:33→21:31)
[2020-12-15] MEDS: PRENATAL VITAMINS W/ FOLIC ACID TABLET (FP) PO SCH (09:57)
[2020-12-15] MEDS: DIVALPROEX SODIUM 500 MG TABLET E.C. PO SCH ×2 (09:57→21:29)
[2020-12-15 11:20] LABS: HEMATOCRIT 37.6 % (35.4-49); HEMOGLOBIN 12.3 GM/dL (11.7-16.9); MCH 28.4 pg (25.7-33.7); MCHC 32.7 g/dl (32.0-35.9); MEAN CELL VOLUME 86.8 fl (80-96); MEAN PLT VOLUME 9.3 fl (7.5-11.1); PLATELET COUNT 201 K/MM3 (134-434); RBC 4.33 M/mm3 (4.00-5.60); RDW 13.9 % (11.9-15.9); WHITE BLOOD COUNT 4.6 K/mm3 (4.0-10.0)
[2020-12-15 12:00] LABS: BLOOD UREA NITROGEN 15.4 mg/dL (7-18)
[2020-12-15 12:02] LABS: ALBUMIN 3.5 g/dl (3.4-5.0)
[2020-12-15 12:03] LABS: CREATININE 0.7 mg/dL (0.55-1.3)
[2020-12-15 12:04] LABS: BILIRUBIN,TOTAL 0.4 mg/dL (0.2-1)
[2020-12-15] MEDS: THIAMINE HCL 100 MG TABLET (FP) PO SCH (21:28)
[2020-12-15] MEDS: MELATONIN 5 MG TABLETS PO SCH (21:29)
[2020-12-15] MEDS: DOCUSATE SODIUM 100 MG CAPSULE (FP) PO PRN (23:59)
[2020-12-16] MEDS ORDERED: METHADONE HCL 10 MG TABLET ONE (04:07)
[2020-12-16] MEDS ORDERED: METHADONE HCL 40 MG DISPERSABLE TABLET ONE (04:08)
[2020-12-16] MEDS: METHADONE 120 MG, METHADONE 30 MG PO SCH (06:20)
[2020-12-16] MEDS: DIVALPROEX SODIUM 500 MG TABLET E.C. PO SCH ×2 (09:51→21:24)
[2020-12-16] MEDS: PRENATAL VITAMINS W/ FOLIC ACID TABLET (FP) PO SCH (09:51)
[2020-12-16] MEDS ORDERED: PT OWN MED DRAWER 7, Y5N ONE (20:37)
[2020-12-16] MEDS: hydrOXYzine PAMOATE 25 MG CAPSULE (FP) PO PRN (21:24)
[2020-12-16] MEDS: MELATONIN 5 MG TABLETS PO SCH (21:24)
[2020-12-16] MEDS: THIAMINE HCL 100 MG TABLET (FP) PO SCH (21:24)
[2020-12-17] MEDS ORDERED: METHADONE HCL 10 MG TABLET ONE (03:19)
[2020-12-17] MEDS ORDERED: METHADONE HCL 40 MG DISPERSABLE TABLET ONE (03:19)
[2020-12-17] MEDS: METHADONE 120 MG, METHADONE 30 MG PO SCH (06:17)
[2020-12-17] MEDS: DIVALPROEX SODIUM 500 MG TABLET E.C. PO SCH ×2 (09:50→21:26)
[2020-12-17] MEDS: PRENATAL VITAMINS W/ FOLIC ACID TABLET (FP) PO SCH (09:50)
[2020-12-17] MEDS: hydrOXYzine PAMOATE 25 MG CAPSULE (FP) PO PRN ×2 (09:51→21:27)
[2020-12-17] MEDS: NICOTINE POLACRILEX 2 MG GUM BC PRN (09:52)
[2020-12-17 11:07] LABS: SARS-CoV-2 NAA Not Detected (Not Detected)
[2020-12-17] MEDS: THIAMINE HCL 100 MG TABLET (FP) PO SCH (21:27)
[2020-12-17] MEDS: MELATONIN 5 MG TABLETS PO SCH (21:27)
[2020-12-18] MEDS ORDERED: METHADONE HCL 10 MG TABLET ONE (04:06)
[2020-12-18] MEDS ORDERED: METHADONE HCL 40 MG DISPERSABLE TABLET ONE (04:06)
[2020-12-18] MEDS: METHADONE 120 MG, METHADONE 30 MG PO SCH (06:11)
[2020-12-18] MEDS: DIVALPROEX SODIUM 500 MG TABLET E.C. PO SCH ×2 (09:52→21:32)
[2020-12-18] MEDS: PRENATAL VITAMINS W/ FOLIC ACID TABLET (FP) PO SCH (09:52)
[2020-12-18] MEDS: NICOTINE POLACRILEX 2 MG GUM BC PRN (09:52)
[2020-12-18] MEDS ORDERED: PT OWN MED DRAWER 7, Y5N ONE (19:42)
[2020-12-18] MEDS: THIAMINE HCL 100 MG TABLET (FP) PO SCH (21:31)
[2020-12-18] MEDS: DOCUSATE SODIUM 100 MG CAPSULE (FP) PO PRN (21:31)
[2020-12-18] MEDS: MELATONIN 5 MG TABLETS PO SCH (21:32)
[2020-12-18] MEDS: hydrOXYzine PAMOATE 25 MG CAPSULE (FP) PO PRN (21:33)
[2020-12-19] MEDS ORDERED: METHADONE HCL 10 MG TABLET ONE (03:28)
[2020-12-19] MEDS ORDERED: METHADONE HCL 40 MG DISPERSABLE TABLET ONE (03:28)
[2020-12-19] MEDS: METHADONE 120 MG, METHADONE 30 MG PO SCH (06:26)
[2020-12-19] MEDS: PRENATAL VITAMINS W/ FOLIC ACID TABLET (FP) PO SCH (10:12)
[2020-12-19] MEDS: DIVALPROEX SODIUM 500 MG TABLET E.C. PO SCH ×2 (10:13→21:43)
[2020-12-19] MEDS: NICOTINE POLACRILEX 2 MG GUM BC PRN (17:04)
[2020-12-19] MEDS ORDERED: PT OWN MED DRAWER 7, Y5N ONE (21:04)
[2020-12-19] MEDS: MELATONIN 5 MG TABLETS PO SCH (21:43)
[2020-12-19] MEDS: THIAMINE HCL 100 MG TABLET (FP) PO SCH (21:43)
[2020-12-20] MEDS ORDERED: METHADONE HCL 10 MG TABLET ONE (06:15)
[2020-12-20] MEDS ORDERED: METHADONE HCL 40 MG DISPERSABLE TABLET ONE (06:15)
[2020-12-20] MEDS: METHADONE 120 MG, METHADONE 30 MG PO SCH (06:43)
[2020-12-20] MEDS: PRENATAL VITAMINS W/ FOLIC ACID TABLET (FP) PO SCH (10:01)
[2020-12-20] MEDS: DIVALPROEX SODIUM 500 MG TABLET E.C. PO SCH ×2 (10:01→21:28)
[2020-12-20] MEDS: MAGNESIUM HYDROX 2400MG/30ML ORAL SUSPENSION 30 ML CUP PO PRN (12:03)
[2020-12-20] MEDS: hydrOXYzine PAMOATE 25 MG CAPSULE (FP) PO PRN (18:05)
[2020-12-20] MEDS ORDERED: PT OWN MED DRAWER 7, Y5N ONE (19:29)
[2020-12-20] MEDS: MELATONIN 5 MG TABLETS PO SCH (21:28)
[2020-12-20] MEDS: THIAMINE HCL 100 MG TABLET (FP) PO SCH (21:28)
[2020-12-21] MEDS ORDERED: METHADONE HCL 10 MG TABLET ONE (03:23)
[2020-12-21] MEDS ORDERED: METHADONE HCL 40 MG DISPERSABLE TABLET ONE (03:23)
[2020-12-21] MEDS: METHADONE 120 MG, METHADONE 30 MG PO SCH (06:23)
[2020-12-21] MEDS: PRENATAL VITAMINS W/ FOLIC ACID TABLET (FP) PO SCH (10:15)
[2020-12-21] MEDS: DIVALPROEX SODIUM 500 MG TABLET E.C. PO SCH ×2 (10:15→21:40)
[2020-12-21] MEDS: MAGNESIUM HYDROX 2400MG/30ML ORAL SUSPENSION 30 ML CUP PO PRN (10:18)
[2020-12-21] MEDS: hydrOXYzine PAMOATE 25 MG CAPSULE (FP) PO PRN ×2 (10:19→21:43)
[2020-12-21] MEDS: NICOTINE POLACRILEX 2 MG GUM BC PRN ×2 (10:20→18:33)
[2020-12-21] MEDS: THIAMINE HCL 100 MG TABLET (FP) PO SCH (21:40)
[2020-12-21] MEDS: MELATONIN 5 MG TABLETS PO SCH (21:42)
[2020-12-22] MEDS ORDERED: METHADONE HCL 10 MG TABLET ONE (03:31)
[2020-12-22] MEDS ORDERED: METHADONE HCL 40 MG DISPERSABLE TABLET ONE (03:31)
[2020-12-22] MEDS: METHADONE 120 MG, METHADONE 30 MG PO SCH (06:41)
[2020-12-22 06:58] VITALS: BP 114/62; PULSE 65; TEMP 97.5
[2020-12-22] MEDS: DIVALPROEX SODIUM 500 MG TABLET E.C. PO SCH (09:52)
[2020-12-22] MEDS: PRENATAL VITAMINS W/ FOLIC ACID TABLET (FP) PO SCH (09:52)
[2020-12-22] MEDS: hydrOXYzine PAMOATE 25 MG CAPSULE (FP) PO PRN (09:52)
== END 2020-12-22 18:33 | disposition home or self-care (01) | DRG 772 ==
LOC: YASAS 11:39 → Y5N 17:38
PROVIDERS: ADMIT Allergy & Immunology; ATTEND Allergy & Immunology
PROC: HZ42ZZZ Group Counseling for Substance Abuse Treatment, Cognitive-Behavioral (ICD-10-PCS; principal; 2020-12-13)
DX: F11.20 Opioid dependence, uncomplicated (principal); F14.20 Cocaine dependence, uncomplicated; F16.10 Hallucinogen abuse, uncomplicated; F17.210 Nicotine dependence, cigarettes, uncomplicated; F25.9 Schizoaffective disorder, unspecified; F31.9 Bipolar disorder, unspecified; F41.9 Anxiety disorder, unspecified; J45.909 Unspecified asthma, uncomplicated; B35.3 Tinea pedis; L84 Corns and callosities; Z98.890 Other specified postprocedural states
CPT/HCPCS: 36415; 80053; 81003; 85027; 86780; C9803; U0003; U0005

== ENCOUNTER 2021-01-30 15:48 | Inpatient (IN) | payer OTHER ==
[2021-01-30] MEDS ORDERED: MAG HYDROX/AL HYDROX/SIMETH 30 ML UNIT-DOSE CUP PO PRN (22:21)
[2021-01-30] MEDS ORDERED: NICOTINE POLACRILEX 2 MG GUM BC PRN (22:21)
[2021-01-30] MEDS ORDERED: LOPERAMIDE HCL 2 MG CAPSULE PO PRN (22:21)
[2021-01-30] MEDS ORDERED: hydrOXYzine PAMOATE 25 MG CAPSULE (FP) PO PRN (22:21)
[2021-01-30] MEDS ORDERED: MAGNESIUM HYDROX 2400MG/30ML ORAL SUSPENSION 30 ML CUP PO PRN (22:21)
[2021-01-30] MEDS ORDERED: MAGNESIUM CITRATE 300 ML BOTTLE PO PRN (22:21)
[2021-01-30] MEDS ORDERED: IBUPROFEN 400 MG TABLET (FP) PO PRN (22:21)
[2021-01-30] MEDS ORDERED: ACETAMINOPHEN 325 MG TABLET (FP) PO PRN (22:21)
[2021-01-30] MEDS ORDERED: guaiFENesin 200 MG/10 ML 10 ML UNIT-DOSE CUPS PO PRN (22:21)
[2021-01-30] MEDS ORDERED: P-EPHED 60MG/TRIPROLIDI 2.5MG TABLET PO PRN (22:21)
[2021-01-31 02:01] VITALS: BMI 38.3
[2021-01-31] MEDS: MELATONIN 5 MG TABLETS PO SCH ×2 (02:56→21:28)
[2021-01-31] MEDS ORDERED: methaDONE HCL 10 MG TABLET PO ONE (10:00)
[2021-01-31] MEDS ORDERED: methaDONE HCL 40 MG DISPERSABLE TABLET ONE (10:09)
[2021-01-31] MEDS ORDERED: methaDONE HCL 10 MG TABLET ONE (10:09)
[2021-01-31] MEDS: PRENATAL VITAMINS W/ FOLIC ACID TABLET (FP) PO SCH (10:11)
[2021-01-31 13:25] LABS: HEMATOCRIT 43.7 % (35.4-49); HEMOGLOBIN 13.9 GM/dL (11.7-16.9); MCH 27.9 pg (25.7-33.7); MCHC 31.9 g/dl (32.0-35.9); MEAN CELL VOLUME 87.4 fl (80-96); MEAN PLT VOLUME 9.2 fl (7.5-11.1); PLATELET COUNT 245 10^3/uL (134-434); RDW 13.3 % (11.9-15.9); WHITE BLOOD COUNT 5.8 K/mm3 (4.0-10.0)
[2021-01-31 13:31] LABS: ALBUMIN 3.8 g/dl (3.4-5.0); BLOOD UREA NITROGEN 11.5 mg/dL (7-18); CALCIUM 8.9 mg/dL (8.5-10.1)
[2021-01-31 13:36] LABS: BILIRUBIN,TOTAL 0.4 mg/dL (0.2-1); TOT PROT 7.6 g/dl (6.4-8.2)
[2021-01-31] MEDS: THIAMINE HCL 100 MG TABLET (FP) PO SCH (21:28)
[2021-01-31 22:49] LABS: PH,URINE 7.5 (5.0-8.0); URINE APPEARANCE CLEAR; URINE BILIRUBIN NEGATIVE (NEGATIVE); URINE COLOR YELLOW; URINE GLUCOSE (UA) NEGATIVE (NEGATIVE); URINE KETONE NEGATIVE (NEGATIVE); URINE LEUK ESTERASE NEGATIVE (NEGATIVE); URINE NITRITE NEGATIVE (NEGATIVE); URINE PROTEIN NEGATIVE (NEGATIVE)
[2021-02-01] MEDS ORDERED: methaDONE HCL 10 MG TABLET ONE (04:21)
[2021-02-01] MEDS ORDERED: methaDONE HCL 40 MG DISPERSABLE TABLET ONE (04:21)
[2021-02-01] MEDS ORDERED: methaDONE HCL 10 MG TABLET PO SCH (06:00)
[2021-02-01] MEDS: PRENATAL VITAMINS W/ FOLIC ACID TABLET (FP) PO SCH (10:17)
[2021-02-01] MEDS: THIAMINE HCL 100 MG TABLET (FP) PO SCH (21:03)
[2021-02-01] MEDS: QUEtiapine FUMARATE 50 MG TABLET PO SCH (21:03)
[2021-02-02] MEDS ORDERED: methaDONE HCL 40 MG DISPERSABLE TABLET ONE (03:11)
[2021-02-02] MEDS ORDERED: methaDONE HCL 10 MG TABLET ONE (03:12)
[2021-02-02] MEDS: PRENATAL VITAMINS W/ FOLIC ACID TABLET (FP) PO SCH (10:11)
[2021-02-02] MEDS: THIAMINE HCL 100 MG TABLET (FP) PO SCH (21:23)
[2021-02-02] MEDS: QUEtiapine FUMARATE 50 MG TABLET PO SCH (21:23)
[2021-02-03] MEDS ORDERED: methaDONE HCL 40 MG DISPERSABLE TABLET ONE (03:33)
[2021-02-03] MEDS ORDERED: methaDONE HCL 10 MG TABLET ONE (03:33)
[2021-02-03] MEDS: PRENATAL VITAMINS W/ FOLIC ACID TABLET (FP) PO SCH (11:18)
[2021-02-03] MEDS: MELATONIN 5 MG TABLETS PO PRN (21:20)
[2021-02-03] MEDS: QUEtiapine FUMARATE 50 MG TABLET PO SCH (21:20)
[2021-02-03] MEDS: THIAMINE HCL 100 MG TABLET (FP) PO SCH (21:20)
[2021-02-04] MEDS ORDERED: methaDONE HCL 10 MG TABLET ONE (03:06)
[2021-02-04] MEDS ORDERED: methaDONE HCL 40 MG DISPERSABLE TABLET ONE (03:06)
[2021-02-04] MEDS: PRENATAL VITAMINS W/ FOLIC ACID TABLET (FP) PO SCH (09:32)
[2021-02-04] MEDS: THIAMINE HCL 100 MG TABLET (FP) PO SCH (21:33)
[2021-02-04] MEDS: QUEtiapine FUMARATE 50 MG TABLET PO SCH (21:33)
[2021-02-04] MEDS: MELATONIN 5 MG TABLETS PO PRN (21:34)
[2021-02-05] MEDS ORDERED: methaDONE HCL 10 MG TABLET ONE (03:06)
[2021-02-05] MEDS ORDERED: methaDONE HCL 40 MG DISPERSABLE TABLET ONE (03:06)
[2021-02-05] MEDS: PRENATAL VITAMINS W/ FOLIC ACID TABLET (FP) PO SCH (10:30)
[2021-02-05] MEDS: MELATONIN 5 MG TABLETS PO PRN (21:15)
[2021-02-05] MEDS: THIAMINE HCL 100 MG TABLET (FP) PO SCH (21:15)
[2021-02-05] MEDS: QUEtiapine FUMARATE 50 MG TABLET PO SCH (21:15)
[2021-02-06] MEDS ORDERED: methaDONE HCL 40 MG DISPERSABLE TABLET ONE (04:04)
[2021-02-06] MEDS ORDERED: methaDONE HCL 10 MG TABLET ONE (04:05)
[2021-02-06] MEDS: PRENATAL VITAMINS W/ FOLIC ACID TABLET (FP) PO SCH (10:12)
[2021-02-06] MEDS: THIAMINE HCL 100 MG TABLET (FP) PO SCH (21:23)
[2021-02-06] MEDS: QUEtiapine FUMARATE 50 MG TABLET PO SCH (21:23)
[2021-02-06] MEDS: MELATONIN 5 MG TABLETS PO PRN (21:23)
[2021-02-07] MEDS ORDERED: methaDONE HCL 40 MG DISPERSABLE TABLET ONE (03:05)
[2021-02-07] MEDS ORDERED: methaDONE HCL 10 MG TABLET ONE (03:05)
[2021-02-07] MEDS: PRENATAL VITAMINS W/ FOLIC ACID TABLET (FP) PO SCH (10:16)
[2021-02-07] MEDS: MELATONIN 5 MG TABLETS PO PRN (21:08)
[2021-02-07] MEDS: QUEtiapine FUMARATE 50 MG TABLET PO SCH (21:08)
[2021-02-07] MEDS: THIAMINE HCL 100 MG TABLET (FP) PO SCH (21:08)
[2021-02-08] MEDS ORDERED: methaDONE HCL 10 MG TABLET ONE (06:05)
[2021-02-08] MEDS ORDERED: methaDONE HCL 40 MG DISPERSABLE TABLET ONE (06:05)
[2021-02-08 06:47] VITALS: PULSE 67
[2021-02-08] MEDS: PRENATAL VITAMINS W/ FOLIC ACID TABLET (FP) PO SCH (10:22)
[2021-02-08] MEDS: MELATONIN 5 MG TABLETS PO PRN (21:20)
[2021-02-08] MEDS: THIAMINE HCL 100 MG TABLET (FP) PO SCH (21:20)
[2021-02-08] MEDS: QUEtiapine FUMARATE 50 MG TABLET PO SCH (21:20)
[2021-02-09] MEDS ORDERED: methaDONE HCL 40 MG DISPERSABLE TABLET ONE (03:11)
[2021-02-09] MEDS ORDERED: methaDONE HCL 10 MG TABLET ONE (03:11)
[2021-02-09 06:55] VITALS: BP 130/71; TEMP 98
[2021-02-09] MEDS: PRENATAL VITAMINS W/ FOLIC ACID TABLET (FP) PO SCH (10:37)
== END 2021-02-09 16:57 | disposition home or self-care (01) | DRG 772 ==
LOC: YASAS 15:48 → Y3W 01-31 02:27
PROVIDERS: ADMIT Allergy & Immunology; ATTEND Allergy & Immunology
PROC: HZ42ZZZ Group Counseling for Substance Abuse Treatment, Cognitive-Behavioral (ICD-10-PCS; principal; 2021-01-31)
DX: F10.20 Alcohol dependence, uncomplicated (principal); F11.20 Opioid dependence, uncomplicated; F14.20 Cocaine dependence, uncomplicated; F12.20 Cannabis dependence, uncomplicated; F16.10 Hallucinogen abuse, uncomplicated; F17.210 Nicotine dependence, cigarettes, uncomplicated; F25.9 Schizoaffective disorder, unspecified; F19.280 Other psychoactive substance dependence with psychoactive substance-induced anxiety disorder; F19.282 Other psychoactive substance dependence with psychoactive substance-induced sleep disorder; J45.909 Unspecified asthma, uncomplicated; R00.1 Bradycardia, unspecified; E66.9 Obesity, unspecified; Z68.38 Body mass index [BMI] 38.0-38.9, adult; Z91.013 Allergy to seafood; Z56.0 Unemployment, unspecified
CPT/HCPCS: 36415; 80053; 81003; 85027; 86780; C9803; U0003; U0005

== ENCOUNTER 2021-02-26 16:52 | Inpatient (IN) | payer OTHER ==
[2021-02-26 18:06] VITALS: BMI 35.5
[2021-02-26] MEDS ORDERED: LOPERAMIDE HCL 2 MG CAPSULE PO PRN (19:12)
[2021-02-26] MEDS ORDERED: P-EPHED 60MG/TRIPROLIDI 2.5MG TABLET PO PRN (19:12)
[2021-02-26] MEDS ORDERED: hydrOXYzine PAMOATE 25 MG CAPSULE (FP) PO PRN (19:12)
[2021-02-26] MEDS ORDERED: MAG HYDROX/AL HYDROX/SIMETH 30 ML UNIT-DOSE CUP PO PRN (19:12)
[2021-02-26] MEDS ORDERED: MAGNESIUM CITRATE 300 ML BOTTLE PO PRN (19:12)
[2021-02-26] MEDS ORDERED: guaiFENesin 200 MG/10 ML 10 ML UNIT-DOSE CUPS PO PRN (19:12)
[2021-02-26] MEDS ORDERED: MAGNESIUM HYDROX 2400MG/30ML ORAL SUSPENSION 30 ML CUP PO PRN (19:12)
[2021-02-27] MEDS: MELATONIN 5 MG TABLETS PO SCH ×2 (00:55→21:54)
[2021-02-27] MEDS: THIAMINE HCL 100 MG TABLET (FP) PO SCH ×2 (00:55→21:54)
[2021-02-27] MEDS: PRENATAL VITAMINS W/ FOLIC ACID TABLET (FP) PO SCH (09:31)
[2021-02-27] MEDS ORDERED: methaDONE HCL 10 MG TABLET PO ONE (11:40)
[2021-02-27] MEDS ORDERED: methaDONE HCL 10 MG TABLET ONE (12:29)
[2021-02-27] MEDS ORDERED: methaDONE HCL 40 MG DISPERSABLE TABLET ONE (12:30)
[2021-02-27 15:38] LABS: PH,URINE 5.5 (5.0-8.0); URINE APPEARANCE CLEAR; URINE BILIRUBIN NEGATIVE (NEGATIVE); URINE COLOR YELLOW; URINE GLUCOSE (UA) NEGATIVE (NEGATIVE); URINE KETONE NEGATIVE (NEGATIVE); URINE LEUK ESTERASE NEGATIVE (NEGATIVE); URINE NITRITE NEGATIVE (NEGATIVE); URINE PROTEIN NEGATIVE (NEGATIVE); URINE UROBILINOGEN 0.2 mg/dL (0.2-1.0)
[2021-02-28] MEDS ORDERED: methaDONE HCL 10 MG TABLET PO SCH (06:00)
[2021-02-28] MEDS ORDERED: methaDONE HCL 10 MG TABLET ONE (06:11)
[2021-02-28] MEDS ORDERED: methaDONE HCL 40 MG DISPERSABLE TABLET ONE (06:12)
[2021-02-28] MEDS: PRENATAL VITAMINS W/ FOLIC ACID TABLET (FP) PO SCH (09:18)
[2021-02-28] MEDS: QUEtiapine FUMARATE 50 MG TABLET PO SCH (21:19)
[2021-02-28] MEDS: THIAMINE HCL 100 MG TABLET (FP) PO SCH (21:19)
[2021-02-28] MEDS: MELATONIN 5 MG TABLETS PO SCH (21:20)
[2021-03-01] MEDS ORDERED: methaDONE HCL 40 MG DISPERSABLE TABLET ONE (06:30)
[2021-03-01] MEDS ORDERED: methaDONE HCL 10 MG TABLET ONE (06:30)
[2021-03-01] MEDS: PRENATAL VITAMINS W/ FOLIC ACID TABLET (FP) PO SCH (09:50)
[2021-03-01] MEDS: THIAMINE HCL 100 MG TABLET (FP) PO SCH (21:50)
[2021-03-01] MEDS: QUEtiapine FUMARATE 50 MG TABLET PO SCH (21:50)
[2021-03-01] MEDS: MELATONIN 5 MG TABLETS PO SCH (21:51)
[2021-03-02] MEDS ORDERED: methaDONE HCL 10 MG TABLET ONE (03:56)
[2021-03-02] MEDS ORDERED: methaDONE HCL 40 MG DISPERSABLE TABLET ONE (03:57)
[2021-03-02] MEDS: PRENATAL VITAMINS W/ FOLIC ACID TABLET (FP) PO SCH (10:14)
[2021-03-02] MEDS: IBUPROFEN 400 MG TABLET (FP) PO PRN (17:16)
[2021-03-02] MEDS: THIAMINE HCL 100 MG TABLET (FP) PO SCH (22:02)
[2021-03-02] MEDS: ACETAMINOPHEN 325 MG TABLET (FP) PO PRN (22:02)
[2021-03-02] MEDS: QUEtiapine FUMARATE 50 MG TABLET PO SCH (22:02)
[2021-03-02] MEDS: MELATONIN 5 MG TABLETS PO SCH (22:04)
[2021-03-03] MEDS ORDERED: methaDONE HCL 10 MG TABLET ONE (03:35)
[2021-03-03] MEDS ORDERED: methaDONE HCL 40 MG DISPERSABLE TABLET ONE (03:36)
[2021-03-03] MEDS: IBUPROFEN 400 MG TABLET (FP) PO PRN ×3 (03:42→20:20)
[2021-03-03] MEDS: ACETAMINOPHEN 325 MG TABLET (FP) PO PRN ×2 (06:39→17:04)
[2021-03-03] MEDS: PRENATAL VITAMINS W/ FOLIC ACID TABLET (FP) PO SCH (09:29)
[2021-03-03] MEDS: QUEtiapine FUMARATE 50 MG TABLET PO SCH (21:17)
[2021-03-03] MEDS: MELATONIN 5 MG TABLETS PO SCH (21:17)
[2021-03-03] MEDS: THIAMINE HCL 100 MG TABLET (FP) PO SCH (21:17)
[2021-03-04] MEDS: IBUPROFEN 400 MG TABLET (FP) PO PRN ×3 (02:35→21:16)
[2021-03-04] MEDS ORDERED: methaDONE HCL 10 MG TABLET ONE (05:11)
[2021-03-04] MEDS ORDERED: methaDONE HCL 40 MG DISPERSABLE TABLET ONE (05:11)
[2021-03-04] MEDS: PRENATAL VITAMINS W/ FOLIC ACID TABLET (FP) PO SCH (09:07)
[2021-03-04] MEDS: MELATONIN 5 MG TABLETS PO SCH (21:15)
[2021-03-04] MEDS: THIAMINE HCL 100 MG TABLET (FP) PO SCH (21:16)
[2021-03-04] MEDS: QUEtiapine FUMARATE 50 MG TABLET PO SCH (21:16)
[2021-03-05] MEDS: IBUPROFEN 400 MG TABLET (FP) PO PRN ×3 (03:50→21:50)
[2021-03-05] MEDS ORDERED: methaDONE HCL 10 MG TABLET ONE (03:59)
[2021-03-05] MEDS ORDERED: methaDONE HCL 40 MG DISPERSABLE TABLET ONE (04:00)
[2021-03-05] MEDS: PRENATAL VITAMINS W/ FOLIC ACID TABLET (FP) PO SCH (10:34)
[2021-03-05] MEDS: THIAMINE HCL 100 MG TABLET (FP) PO SCH (21:50)
[2021-03-05] MEDS: MELATONIN 5 MG TABLETS PO SCH (21:52)
[2021-03-05] MEDS: QUEtiapine FUMARATE 50 MG TABLET PO SCH (21:53)
[2021-03-06] MEDS ORDERED: methaDONE HCL 40 MG DISPERSABLE TABLET ONE (05:50)
[2021-03-06] MEDS ORDERED: methaDONE HCL 10 MG TABLET ONE (05:50)
[2021-03-06] MEDS: IBUPROFEN 400 MG TABLET (FP) PO PRN ×2 (06:27→14:20)
[2021-03-06 06:55] VITALS: BP 122/81; PULSE 62; TEMP 97.8
[2021-03-06] MEDS: PRENATAL VITAMINS W/ FOLIC ACID TABLET (FP) PO SCH (09:15)
== END 2021-03-06 14:50 | disposition home or self-care (01) | DRG 772 ==
LOC: YASAS 16:52 → Y3E 20:34
PROVIDERS: ADMIT Allergy & Immunology; ATTEND Allergy & Immunology
PROC: HZ42ZZZ Group Counseling for Substance Abuse Treatment, Cognitive-Behavioral (ICD-10-PCS; principal; 2021-02-26)
DX: F10.20 Alcohol dependence, uncomplicated (principal); F11.20 Opioid dependence, uncomplicated; F14.20 Cocaine dependence, uncomplicated; F16.10 Hallucinogen abuse, uncomplicated; F12.20 Cannabis dependence, uncomplicated; F17.210 Nicotine dependence, cigarettes, uncomplicated; F25.9 Schizoaffective disorder, unspecified; F31.9 Bipolar disorder, unspecified; F41.9 Anxiety disorder, unspecified; J45.909 Unspecified asthma, uncomplicated
CPT/HCPCS: 81003; C9803; U0003; U0005

== ENCOUNTER 2021-03-25 11:44 | Inpatient (IN) | payer OTHER ==
[2021-03-25 15:03] VITALS: BMI 39.1
[2021-03-25] MEDS ORDERED: MAGNESIUM CITRATE 300 ML BOTTLE PO PRN (18:35)
[2021-03-25] MEDS ORDERED: MAGNESIUM HYDROX 2400MG/30ML ORAL SUSPENSION 30 ML CUP PO PRN (18:35)
[2021-03-25] MEDS ORDERED: ONDANSETRON *ODT* 4 MG TABLET SL PRN (18:35)
[2021-03-25] MEDS ORDERED: ACETAMINOPHEN 325 MG TABLET (FP) PO PRN ×2 (18:35)
[2021-03-25] MEDS ORDERED: MAG HYDROX/AL HYDROX/SIMETH 30 ML UNIT-DOSE CUP PO PRN (18:35)
[2021-03-25] MEDS ORDERED: METHOCARBAMOL 500 MG TABLET PO PRN (18:35)
[2021-03-25] MEDS ORDERED: hydrOXYzine PAMOATE 25 MG CAPSULE (FP) PO PRN (18:35)
[2021-03-25] MEDS ORDERED: MENTHOL/PHENOL 1 EACH UD MM PRN (18:35)
[2021-03-25] MEDS ORDERED: BISMUTH SUBSALICYLATE 524 MG/30 ML PO PRN (18:35)
[2021-03-25] MEDS ORDERED: NICOTINE POLACRILEX 2 MG GUM BUC PRN (18:35)
[2021-03-25] MEDS ORDERED: IBUPROFEN 400 MG TABLET (FP) PO PRN (18:35)
[2021-03-25] MEDS ORDERED: cloNIDine HCL 0.1 MG TABLET PO PRN (18:35)
[2021-03-25] MEDS ORDERED: MELATONIN 5 MG TABLETS PO SCH (22:00)
[2021-03-25] MEDS ORDERED: QUEtiapine FUMARATE 50 MG TABLET PO SCH (22:00)
[2021-03-25] MEDS ORDERED: THIAMINE HCL 100 MG TABLET (FP) PO SCH (22:00)
[2021-03-25] MEDS ORDERED: methaDONE HCL 10 MG TABLET (FOR DETOX USE ONLY) PO ONE (22:00)
[2021-03-26] MEDS ORDERED: PRENATAL VITAMINS W/ FOLIC ACID TABLET (FP) PO SCH (10:00)
[2021-03-26] MEDS ORDERED: methaDONE HCL 10 MG TABLET (FOR DETOX USE ONLY) ONE (10:01)
[2021-03-26 11:40] VITALS: BP 107/64; PULSE 67; TEMP 98.1
[2021-03-26] MEDS ORDERED: diazePAM 5 MG TABLET PO PRN (13:52)
[2021-03-26] MEDS ORDERED: ALBUTEROL SO4 HFA INHALER IH PRN (14:02)
[2021-03-26 16:14] LABS: HEMATOCRIT 37.9 % (35.4-49); HEMOGLOBIN 12.8 GM/dL (11.7-16.9); MCH 28.3 pg (25.7-33.7); MCHC 33.7 g/dl (32.0-35.9); MEAN CELL VOLUME 84.1 fl (80-96); MEAN PLT VOLUME 8.1 fl (7.5-11.1); PLATELET COUNT 267 10^3/uL (134-434); RBC 4.51 M/mm3 (4.00-5.60); RDW 13.4 % (11.9-15.9); WHITE BLOOD COUNT 4.2 K/mm3 (4.0-10.0)
[2021-03-26 16:50] LABS: CALCIUM 9.2 mg/dL (8.5-10.1)
[2021-03-26 16:51] LABS: ALBUMIN 3.6 g/dl (3.4-5.0)
[2021-03-26 16:54] LABS: CREATININE 0.8 mg/dL (0.55-1.3)
[2021-03-26 16:55] LABS: BILIRUBIN,TOTAL 0.6 mg/dL (0.2-1); TOT PROT 7.1 g/dl (6.4-8.2)
[2021-03-27] MEDS ORDERED: methaDONE HCL 10 MG TABLET (FOR DETOX USE ONLY) PO ONE (10:00)
[2021-03-29] MEDS ORDERED: methaDONE HCL 10 MG TABLET (FOR DETOX USE ONLY) PO ONE (10:00)
== END 2021-03-26 13:58 | disposition left against medical advice (07) | DRG 770 ==
LOC: YASAS 11:44 → Y3N 17:56
PROVIDERS: ADMIT Allergy & Immunology; ATTEND Allergy & Immunology
PROC: HZ2ZZZZ Detoxification Services for Substance Abuse Treatment (ICD-10-PCS; principal; 2021-03-25)
DX: F11.23 Opioid dependence with withdrawal (principal); F14.20 Cocaine dependence, uncomplicated; F16.10 Hallucinogen abuse, uncomplicated; F12.20 Cannabis dependence, uncomplicated; F17.210 Nicotine dependence, cigarettes, uncomplicated; F31.9 Bipolar disorder, unspecified; F25.9 Schizoaffective disorder, unspecified; J45.909 Unspecified asthma, uncomplicated; Z91.013 Allergy to seafood
CPT/HCPCS: 36415; 80053; 85027; 86780; 93005; 93010; C9803; U0003; U0005

== ENCOUNTER 2022-06-19 22:25 | Inpatient (IN) | payer OTHER ==
[2022-06-20] MEDS ORDERED: VANCOMYCIN 1 GM in D5W (PRE-DOCKED) 1,000 MG/250 ML IVPB ONE (01:12)
[2022-06-20] MEDS ORDERED: methaDONE HCL 10 MG TABLET PO ONE ×2 (01:15→05:54)
[2022-06-20 01:39] LABS: BASO % 1.1 % (0-2.0); EOS % 2.9 % (0-4.5); HEMATOCRIT 30.1 % (35.4-49); HEMOGLOBIN 9.6 GM/dL (11.7-16.9); LYMPH % 29.6 % (8-40); MCH 28.2 pg (25.7-33.7); MCHC 31.9 g/dl (32.0-35.9); MEAN CELL VOLUME 88.4 fl (80-96); MONO % 8.4 % (3.8-10.2); PLATELET COUNT 305 10^3/uL (134-434); RBC 3.41 M/mm3 (4.00-5.60); RDW 14.9 % (11.9-15.9); WHITE BLOOD COUNT 5.9 K/mm3 (4.0-10.0)
[2022-06-20 01:48] LABS: INR 1.07 (0.83-1.09); PROTHROMBIN TIME (PATIENT) 12.3 SEC (9.7-13.0)
[2022-06-20 01:50] LABS: ACTIVATED PTT 30.5 SECONDS (25.2-36.5)
[2022-06-20 02:00] LABS: ALBUMIN 2.5 g/dl (3.4-5.0); BLOOD UREA NITROGEN 11.3 mg/dL (7-18); CALCIUM 8.1 mg/dL (8.5-10.1)
[2022-06-20 02:04] LABS: CREATININE 0.6 mg/dL (0.55-1.3)
[2022-06-20 02:06] LABS: BILIRUBIN,TOTAL 0.1 mg/dL (0.2-1); TOT PROT 5.8 g/dl (6.4-8.2)
[2022-06-20 02:09] LABS: N-TERMINAL BNP 528.5 pg/ml (5-125)
[2022-06-20] MEDS ORDERED: VANCOMYCIN/WATER FOR INJ (PEG) 1,000 MG/200 ML BAG IVPB ONE (02:35)
[2022-06-20] MEDS ORDERED: PIPERACILLIN/TAZOB 4.5 GM 4.5 GM in DEXTROSE 5%-WATER 100 ML IVPB ONE (03:23)
[2022-06-20] MEDS ORDERED: morphine CARPU-JECT 4 MG/1 ML DISP.SYRIN IVPUSH ONE ×2 (04:26→06:12)
[2022-06-20] MEDS ORDERED: ACETAMINOPHEN 1000 MG/100 ML BAG IVPB PRN (05:34)
[2022-06-20] MEDS ORDERED: morphine SULFATE 4 MG/ML VIAL ONE (05:58)
[2022-06-20] MEDS ORDERED: PIPERACILLIN/TAZOB 4.5 GM 4.5 GM/100 ML BAG IVPB ONE (05:59)
[2022-06-20] MEDS ORDERED: CEFTRIAXONE 1 GM in DEXTROSE 5%-WATER - 50 ML IVPB ONE (08:00)
[2022-06-20 09:39] LABS: BASO % 0.3 % (0-2.0); EOS % 0.8 % (0-4.5); HEMATOCRIT 33.6 % (35.4-49); HEMOGLOBIN 10.6 GM/dL (11.7-16.9); LYMPH % 17.5 % (8-40); MCH 27.7 pg (25.7-33.7); MCHC 31.7 g/dl (32.0-35.9); MEAN CELL VOLUME 87.5 fl (80-96); MEAN PLT VOLUME 8.1 fl (7.5-11.1); MONO % 3.5 % (3.8-10.2); NEUT % 77.9 % (42.8-82.8); PLATELET COUNT 331 10^3/uL (134-434); RBC 3.84 M/mm3 (4.00-5.60); RDW 14.7 % (11.9-15.9); RETICULOCYTES 1.78 % (0.5-1.5); WHITE BLOOD COUNT 6.4 K/mm3 (4.0-10.0)
[2022-06-20 10:27] LABS: ALBUMIN 2.8 g/dl (3.4-5.0)
[2022-06-20 10:28] LABS: BILIRUBIN,TOTAL 0.5 mg/dL (0.2-1); BLOOD UREA NITROGEN 7.8 mg/dL (7-18); CREATININE 0.6 mg/dL (0.55-1.3); PHOSPHOROUS 2.5 mg/dL (2.5-4.9); TOT PROT 6.5 g/dl (6.4-8.2)
[2022-06-20 10:30] LABS: CALCIUM 8.7 mg/dL (8.5-10.1)
[2022-06-20 10:48] VITALS: BMI 32.0
[2022-06-20 11:44] LABS: METHADONE, UR NEGATIVE (NEGATIVE); PHENCYCLIDINE,URINE NEGATIVE (NEGATIVE)
[2022-06-20 11:56] LABS: COCAINE, UR POSITIVE (NEGATIVE); OPIATES, URI POSITIVE (NEGATIVE); URINE AMPHETAMINES NEGATIVE (NEGATIVE); URINE BARBITURATES NEGATIVE (NEGATIVE); URINE BENZODIAZEPINES NEGATIVE (NEGATIVE)
[2022-06-20] MEDS ORDERED: chlordiazePOXIDE HCL 25 MG CAPSULE PO PRN (12:57)
[2022-06-20] MEDS ORDERED: cloNIDine HCL 0.1 MG TABLET PO PRN (12:57)
[2022-06-20] MEDS: ENOXAPARIN NA (PORCINE) 40 MG/0.4 ML DISP.SYRIN SQ SCH (13:27)
[2022-06-20] MEDS: chlordiazePOXIDE HCL 25 MG CAPSULE PO SCH ×3 (13:28→23:05)
[2022-06-20] MEDS ORDERED: VANCOMYCIN PREMIX 1.5 GM 1,500 MG/300 ML BAG IVPB SCH (15:00)
[2022-06-20] MEDS ORDERED: hydrOXYzine PAMOATE 50 MG CAPSULE (FP) PO ONE (21:50)
[2022-06-21] MEDS ORDERED: ONDANSETRON 4 MG/2 ML VIAL IVPUSH ONE (01:02)
[2022-06-21] MEDS ORDERED: AMPICILLIN NA/SULBACTAM NA 1.5 GM in SODIUM CHLORIDE 100 ML IVPB SCH ×2 (03:00→08:57)
[2022-06-21] MEDS ORDERED: chlordiazePOXIDE HCL 25 MG CAPSULE PO SCH (05:00)
[2022-06-21] MEDS: chlordiazePOXIDE HCL 25 MG CAPSULE PO SCH (06:21)
[2022-06-21] MEDS: ENOXAPARIN NA (PORCINE) 40 MG/0.4 ML DISP.SYRIN SQ SCH ×2 (10:02→10:06)
[2022-06-21 13:27] VITALS: BP 148/81; PULSE 63; RESP 17; TEMP 98.6
[2022-06-21] MEDS ORDERED: VANCOMYCIN PREMIX 1.5 GM 1,500 MG/300 ML BAG IVPB SCH (15:00)
[2022-06-22] MEDS ORDERED: chlordiazePOXIDE HCL 10 MG CAPSULE PO PRN
[2022-06-22] MEDS ORDERED: chlordiazePOXIDE HCL 10 MG CAPSULE PO SCH (05:00)
[2022-06-22] MEDS ORDERED: methaDONE HCL 10 MG TABLET PO ONE (06:00)
[2022-06-23] MEDS ORDERED: chlordiazePOXIDE HCL 10 MG CAPSULE PO SCH (05:00)
[2022-06-24] MEDS ORDERED: chlordiazePOXIDE HCL 10 MG CAPSULE PO ONE (05:00)
[2022-06-24] MEDS ORDERED: methaDONE HCL 10 MG TABLET PO ONE (10:00)
== END 2022-06-21 10:52 | disposition left against medical advice (07) | DRG 383 ==
LOC: JER 22:25 → JERBED 06-20 01:59 → J6S 06-20 10:17
PROVIDERS: ADMIT Internal Medicine
PROC: HZ2ZZZZ Detoxification Services for Substance Abuse Treatment (ICD-10-PCS; principal; 2022-06-20)
DX: L03.116 Cellulitis of left lower limb (principal); F10.139 Alcohol abuse with withdrawal, unspecified; F11.23 Opioid dependence with withdrawal; L03.115 Cellulitis of right lower limb; D64.9 Anemia, unspecified; B35.3 Tinea pedis; F17.210 Nicotine dependence, cigarettes, uncomplicated
CPT/HCPCS: 0241U-QW; 36415; 70450-TC; 71045-TC-FY; 72125-TC; 72170-TC-FY; 73521-TC-FY; 80053; 80307; 83735; 83880; 84100; 84466; 84484; 85025; 85045; 85610; 85730; 87040; 93005; 93010; 93306-TC; 93970-TC; 99285-25